=== PATIENT | male | born 1970 | race Caucasian/White ===

== ENCOUNTER 2021-02-18 01:22 | Emergency (ER) | payer OTHER ==
[2021-02-18] MEDS ORDERED: TORADOL 10 MG T10 MG PO (04:36)
[2021-02-18] MEDS ORDERED: AUGMENTIN 875-1 EACH PO (04:36)
== END 2021-02-18 04:42 | disposition home or self-care (01) ==
LOC: ER1 01:22
DX: K04.7 Periapical abscess without sinus (principal)
CPT/HCPCS: 99282